=== PATIENT | female | born 2005 | race Caucasian/White ===

== ENCOUNTER 2023-12-03 11:00 | Emergency (ER) | payer OTHER, SELFPAY ==
--- NOTE | 2023-12-03 11:38 | ED.GENMED ---
Addendum entered and electronically signed by Bowen Kingston PA-C 12/05/23 07:32:
Group B strep on UCx likely contaminant, pt not presenting with UTI symptoms
Original Note:
History of Present Illness
General
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
Source: patient
Exam Limitations: none
Time Seen by Provider: 12/03/23 11:28
Travel History
Have you had any contact with someone who has COVID-19?: No
Do you have any symptoms of coronavirus? Fever > 100 degrees, chills, cough, shortness of breath, sore throat, loss of taste or smell, muscle aches, or headache?: No
History of Present Illness
History of Present Illness:
18-year-old female presents with irregular menstrual bleeding ongoing for 9 days. It started earlier than usual. She also noticed a random associated sharp stabbing pain to the right pelvic area. No urinary symptoms. No nausea vomiting. She is
moving her bowels. No fever. Typically she is very regular. There is a small chance of . She denies any other vaginal discharge. No other complaints at this time
Phy Exam
Physical Exam
Physical Exam:
General: Well-appearing female no acute respiratory distress
HEENT: Normocephalic atraumatic heart: Regular rate and rhythm no murmurs
Lungs: Clear to auscultation bilaterally no wheezing
Abdomen: Soft nontender nondistended guarding rebound normal bowel sounds, no costovertebral angle tenderness
Course
Orders/Labs/Results
Orders:
Orders
12/03/23 11:37
Test Result ONCE
US Pelvis W Transvag Combined Urgent
Comment:
Reason For Exam: irregular bleeding, right pelvic pain
12/03/23 12:51
Complete Blood Count/With Diff Urgent
Comprehensive Metabolic Panel Urgent
HCG, Serum Qualitative Screen Urgent
12/03/23 12:54
Urinalysis Reflex To Culture Urgent
Date Specimen was Collected: 12/03/23
Time Specimen was Collected: 12:53
Urine Microscopic Reflex Cult Urgent
Urine Culture Urgent
JORDAN Source: U
Specimen Description:
Date Specimen was Collected: 12/03/23
Time Specimen was Collected: 12:53
Abnormal Lab Results
12/03/23
12:54
Urine Ketones Trace A
(Negative)
Ur Occult Blood Reflex 4+ A
(Negative)
Leukocyte Esterase Rfl Trace A
(Negative)
Urine RBC 7-10 A /HPF
(0-2)
Urine Bacteria (Reflex) Many A
(Negative)
12/03/23 12:51
12/03/23 12:51
Vital Signs
Initial and Last Documented VS:
Initial Vital Signs
Temp Pulse Resp Pulse Ox
98.5 F 77 18 97
12/03/23 11:06 12/03/23 11:06 12/03/23 11:06 12/03/23 11:06
Last Documented Vital Signs
Temp Pulse Resp Pulse Ox
98.5 F 77 18 97
12/03/23 11:06 12/03/23 11:06 12/03/23 11:06 12/03/23 11:06
MDM/Problems Addressed
Differential Diagnosis Includes:
Irregular menstrual bleeding. Question possible versus dysfunctional uterine bleeding versus ovarian cyst given the pain
Patient feels like she has a full bladder. Will send for ultrasound of pelvis with transvaginal.
Labs including test pending
*Critical Care Note
Total Time (30-74mins, 75-104mins- exclusive of procedures): Not Applicable
Update Note
Update Note:
Pelvic ultrasound negative test is negative labs reviewed and are without finding. Suspect contaminated specimen on urinalysis. Patient has no urinary symptoms. Will not treat urine today. Recommended ibuprofen or Tylenol. Recommended
follow-up with gynecology for irregular bleeding
ED Attending Note
-
Portions of this chart may have been created with voice recognition software.� Occasional wrong word or��sound alike� substitutions may have occurred due to the inherent limitations of voice recognition software.
Discharge Plan
Departure
Patient Disposition: Home (Routine Discharge)
Date of Disposition: 12/03/23
Time of Disposition: 14:04
Patient with high blood pressure during this ER visit?: No
Discharge Problem:
Irregular uterine bleeding
Prescriptions:
No Action
cephalexin 500 mg capsule
500 mg PO BID 7 Days Qty: 14 0RF
Referrals:
Cassi Rodriguez MD [Family Provider] -
Aishwarya Villavicencio DO [Active] -
Activity Restrictions/Additional Instructions:
Use ibuprofen or Tylenol if needed for pain. Please follow-up with gynecology peer return if worse otherwise
Interventions
Interventions:
*Risk Screen - Suicide Last Done: 12/03/23 12:40
*General Assessment Last Done: 12/03/23 12:40
*Neglect/Abuse Screening Last Done: 12/03/23 12:40
*ED COVID-19 Vaccine History Last Done: 12/03/23 12:40
ED-Female Genitourinary Assessment Last Done: 12/03/23 12:40
[2023-12-03 12:40] VITALS: BMI 21.4
[2023-12-03 13:08] LABS: % Basophils 0.3 % (0-2); % Eosinophils 0.3 % (0-6); % Immature Granulocytes 0.4 % (0-0.5); % Lymphocytes 22.2 % (20.5-51.1); % Monocytes 6.1 % (1.7-9.3); % Neutrophils 70.7 % (42.2-75.2); Absolute Lymphocytes 1.5 10^3/uL (1.2-3.4); Absolute Monocytes 0.4 10^3/uL (0.1-0.6); Absolute Neutrophils 4.9 10^3/uL (1.4-6.5); Hematocrit 40.5 % (37.0-47.0); Mean Corp Hgb Conc. 34.6 g/dL (33.0-37.0); Mean Corpuscular Hgb 30.6 pg (27.0-31.0); Mean Corpuscular Volume 88.6 fL (81.0-99.0); Mean Platelet Volume 9.9 fL (7.4-10.4); Nucleated Red Blood Cells % 0 %; Platelet Count 248 10^3/uL (130-400); Red Blood Cell Count 4.57 10^6/uL (4.20-5.40); Red Cell Dist. Width 12.9 % (11.5-14.5); White Blood Cell Count 6.9 10^3/uL (4.8-10.8)
[2023-12-03 13:10] LABS: Urine Albumin Negative (Neg - Trace); Urine Bilirubin Negative (Negative); Urine Character Slightly Cloudy (Clear); Urine Color Yellow; Urine Glucose Negative (Negative); Urine Ketone Trace (Negative); Urine Leukocyte Trace (Negative); Urine Nitrite Negative (Negative); Urine Occult Blood 4+ (Negative); Urine Specific Gravity 1.015 (<1.030); Urine Urobilinogen 1+ (Neg - 1+)
[2023-12-03 13:17] LABS: HCG, Serum Qualitative Screen Negative
[2023-12-03 13:20] LABS: ALT (SGPT) 21 U/L (0-35); AST (SGOT) 18 U/L (14-36); Albumin 4.5 g/dl (3.5-5.0); Alkaline Phosphatase 59 U/L (38-126); Blood Urea Nitrogen 8 mg/dl (7-17); Calcium 9.5 mg/dl (8.4-10.2); Carbon Dioxide 27 mmol/L (22-30); Chloride 106 mmol/L (98-107); Estimated Creatinine Clearance 120 ml/min; Glucose 77 mg/dl (70-99); Potassium 3.7 mmol/L (3.5-5.1); Sodium 139 mmol/L (135-145); Total Bilirubin 0.9 mg/dl (0.2-1.3); Total Protein 6.9 g/dl (6.3-8.2); eGFR > 60.00
[2023-12-03 13:42] LABS: Urine Amorphous Seen; Urine Mucus Many; Urine Squamous Cell >30 /LPF (Few)
[2023-12-03 13:44] LABS: Urine Bacteria Many (Negative); Urine White Cell 0-2 /HPF (0-5)
== END 2023-12-03 14:24 | disposition home or self-care (01) ==
LOC: EMR 11:00
PROVIDERS: Physician Assistant; EMERGENCY PHYSICIAN Emergency Medicine; FAMILY PHYSICIAN Emergency Medicine
DX: N93.9 Abnormal uterine and vaginal bleeding, unspecified (principal)
CPT/HCPCS: 99284; 76830; 76856; 80053; 81003; 81015; 84703; 85025; 87077; 87086; 87147